=== PATIENT | female | born 1960 | race Caucasian/White ===

== ENCOUNTER 2019-08-10 09:00 | Outpatient (CLI) | payer MEDICARE | END 2019-08-10 10:00 | disposition home or self-care (01) | LOC: D.MAMMO 09:00 | PROVIDERS: ATTEND Emergency Medicine | DX: Z12.31 Encounter for screening mammogram for malignant neoplasm of breast (principal) ==

== ENCOUNTER 2021-03-10 07:35 | Day surgery (SDC) | payer MEDICARE ==
[~2021-03-10] VITALS: Ht 162.6 cm; Wt 65.9 kg
[2021-03-10 08:08] LABS: BASOPHILS 0.8 % (0-2); EOSINOPHILS 2.2 % (0-7); HEMATOCRIT 34.7 % (36.0-48.0); HEMOGLOBIN 11.5 g/dL (12-16); LYMPHOCYTES 26.4 % (15-50); MCH 30.3 pg (26.0-34.0); MCHC 33.1 g/dL (31.0-37.0); MCV 91.6 fL (80.0-100.0); MEAN PLATELET VOLUME 8.4 fL (7.4-10.4); MONOCYTES 7.4 % (2-11); NEUTROPHILS 63.2 % (40-80); PLATELET COUNT 182 10x3/uL (130-400); RDW 13.7 % (11.5-14.5); WBC 3.6 10x3/uL (4.8-10.8)
[2021-03-10 08:20] LABS: APTT 28.7 SECONDS (22.8-39.4); INR 1.19 (0.85-1.17)
[2021-03-10 08:26] LABS: ALBUMIN 3.5 g/dL (3.4-5.0); ALKALINE PHOSPHATASE 77 U/L (30-120); ALT (SGPT) 21 U/L (10-68); CALC OSMOLALITY 285 mosm/kg (275-300); CALCIUM 8.6 mg/dL (8.5-10.1); CARBON DIOXIDE 22.8 mmol/L (21.0-32.0); CHLORIDE - SERUM 110 mmol/L (98-107); CREATININE - SERUM 0.7 mg/dL (0.6-1.3); GLUCOSE 91 mg/dL (74-106); POTASSIUM - SERUM 3.5 mmol/L (3.5-5.1); PROTEIN - SERUM 6.9 g/dL (6.4-8.2); SODIUM 143 mmol/L (136-145); UREA NITROGEN 16 mg/dL (7-18); eGFR NON AFRICAN AMERICAN 90 mL/min (90-120)
[2021-03-10 08:41] VITALS: BP 143/86; Ht 162.6 cm; Wt 65.9 kg
[2021-03-10] MEDS ORDERED: ZONEGRAN100 MG PO (08:45)
[2021-03-10] MEDS ORDERED: CYMBALTA60 MG PO (08:46)
[2021-03-10] MEDS ORDERED: DILTIAZEM 24HR120 M3 PO (08:46)
[2021-03-10] MEDS ORDERED: POT CHLORIDE PO (08:47)
[2021-03-10] MEDS ORDERED: TOPAMAX100 MG PO (08:47)
--- NOTE | 2021-03-10 10:52 | NUR ---
FAXED ORDER FOR F/U APPT TO OFFICE 1118 DC TEACHING COMPLETE. PT VERBALIZED UNDERSTANDING. PIV REMOVED BY JACK RN, CATHETER INTACT, PT DRESSING 1143 PT DC'D VIA WC ACCOMPANIED BY JACK ATKINS TO POV WITH ALL BELONGINGS AND DC PACKET. DRIVING.
--- NOTE | 2021-03-11 05:59 | OP ---
PATIENT NAME: LIZZY GRIGSBY MEDICAL RECORD: [id number] :60 LOCATION:D.OPS ADMISSION DATE: SURGEON: EDNA RAGSDALE DO DATE OF OPERATION: 03/10/2021 PROCEDURE: Colonoscopy with polypectomy. INDICATION FOR PROCEDURE: HISTORY of chronic constipation, anemia, family history positive for colon cancer, hematochezia, history of colon polyps. SCOPE: Olympus video pediatric colonoscope. MEDICATIONS: Propofol 750 mg IV per anesthesia. WITHDRAWAL TIME: 26 minutes. ESTIMATED BLOOD LOSS: Minimal. COMPLICATIONS: None. FINDINGS: Informed consent was given. The patient was made comfortable with the above medication. After reaching an adequate level of sedation by slow IV push, the patient was placed on her left side. A digital rectal examination was performed and it was normal. The endoscope was then advanced under direct visualization through the rectum to the cecum, confirmed by the presence of the appendiceal orifice and ileocecal valve. The endoscope was slowly withdrawn and the mucosa was carefully examined. The prep quality was fair. There was a single benign-appearing sessile polyp located in the ascending colon, which measured approximately 3-4 mm in diameter. It was removed using a hot forceps. There were no other polyps visualized. There were no diverticula visualized on today's examination. Retroflexion was performed in the rectum with visualization of grade I internal hemorrhoids without bleeding. The endoscope was withdrawn from the patient. The patient tolerated the procedure well and there were no complications. IMPRESSION: 1. Single benign-appearing polyp located in the ascending colon, status post removal with hot forceps. 2. Grade I internal hemorrhoids without bleeding. PLAN AND RECOMMENDATIONS: 1. Discharge home when recovery parameters are met. 2. Follow up biopsy specimen results. 3. High fiber diet. 4. Supplement diet with 1-2 tablespoons of Metamucil or equivalent psyllium fiber daily. 5. MiraLax one cap p.o. b.i.d. 6. Trial of Linzess 290 mcg daily to twice daily. 7. Recall EGD in 5 years. 8. Follow up in GI clinic in 6 to 8 weeks. TRANSINT:[id number] Voice Confirmation ID: [id number] DOCUMENT ID: [id number] OPERATIVE REPORT [id number] LIZZY GRIGSBY EDNA RAGSDALE DO at 0559 CC: [id number] DICTATION DATE: 03/10/21 1030 GENERAL PEDIATRICIAN: 03/10/21 1106 [facility] 03/10/21 [facility] [address] [place] [address]
== END 2021-03-10 11:43 | disposition home or self-care (01) ==
LOC: D.OPS 07:35
PROVIDERS: ATTEND Internal Medicine Gastroenterology
DX: K59.00 Constipation, unspecified (principal); D64.9 Anemia, unspecified; Z80.0 Family history of malignant neoplasm of digestive organs; K92.1 Melena; Z86.010 Personal history of colon polyps; K63.5 Polyp of colon; K64.0 First degree hemorrhoids